=== PATIENT | male | born 1950 | race Caucasian/White ===

== ENCOUNTER → 2017-04-08 | Outpatient (CLI) | payer MEDICARE ==
--- NOTE | 2017-04-08 22:40 | RADIOLOGY REPORT PS360 ---
US EXTREMITIES LT LIMITED HISTORY: PALPABLE KNOT, HERNIA REPAIR ORDERING PHYSICIAN: Aniceto Davis MD PATIENT AGE: 67 years COMPARISON: None FINDINGS: In the left groin there is increase heterogeneous echogenicity which has a somewhat oval-shaped measuring approximately 3 x 1.6 cm. This is not a typical appearance for a lymph node. Scar tissue or a fat-containing hernia is considered. Consider CT of the abdomen for more thorough evaluation. IMPRESSION: Increase oval echogenicity in the left inguinal area which could represent a fat-containing hernia. Scar tissue is also considered. Suggest CT for more thorough evaluation
== END ==
LOC: RAD 14:27
DX: M79.652 Pain in left thigh (principal); Z98.890 Other specified postprocedural states

== ENCOUNTER → 2017-04-25 | Outpatient (CLI) | payer MEDICARE ==
[~2017-04-25] MED LIST: KEFLEX 500MG.500 MG PO
[2017-04-25 18:42] LABS: BUN 16 mg/dL (7-18); GFR (ESTIMATED) 60 ML/MIN (>60)
== END ==
LOC: LAB 15:55
PROVIDERS: Surgery
DX: R19.09 Other intra-abdominal and pelvic swelling, mass and lump (principal); Z01.812 Encounter for preprocedural laboratory examination

== ENCOUNTER → 2017-04-26 | Outpatient (CLI) | payer MEDICARE ==
--- NOTE | 2017-04-26 14:41 | RADIOLOGY REPORT PS360 ---
CT PELVIS W/ CONTRAST CLINICAL INDICATION: Left groin mass LT GROIN MASS,HERNIA REPAIR 1979, US REVEAL NO LYMPH NODE ORDERING PHYSICIAN: Aniceto Davis MD PATIENT AGE: 67 years COMPARISON: None FINDINGS: There is mixed fat and soft tissue density in both inguinal areas left more prominent than right which will correspond to the sonographic abnormality consistent with postsurgical scarring along with fat in the inguinal canal. A definite hernia is not apparent. This is not consistent with lymphadenopathy. No abnormal fluid collection. Incidental note made of sigmoid diverticulosis. Prostate seed implants are present. There is degenerative disc disease at L5-S1. IMPRESSION: 1. Abnormality on ultrasound represents postsurgical scarring with a small amount of fat in the inguinal canal. No evidence of hernia or francia enlargement. 2. Incidental sigmoid diverticulosis.
== END ==
LOC: RAD 09:42
DX: R10.32 Left lower quadrant pain (principal); R19.09 Other intra-abdominal and pelvic swelling, mass and lump
CPT/HCPCS: Q9967